=== PATIENT | female | born 1945 | race Caucasian/White ===

== ENCOUNTER → 2016-10-04 | Outpatient (CLI) | payer MEDICARE, OTHER ==
[2011-07-09 14:42] VITALS: BP 119/66
[~2016-10-04] MED LIST: CITALOPRAM HYDR20 MG PO; EXELON PAT4.6 MG/24 TD; FLUTICAS P0.05 MG/AC NS; PULMICORT180 MCG/A2 IH; SEREVENT IH
== END ==
LOC: LAB 09:24
DX: J45.998 Other asthma (principal); J30.9 Allergic rhinitis, unspecified; N39.0 Urinary tract infection, site not specified; G30.9 Alzheimer's disease, unspecified

== ENCOUNTER → 2016-10-06 | Outpatient (CLI) | payer MEDICARE, OTHER ==
[2011-07-09 14:42] VITALS: BP 119/66
== END ==
LOC: LAB 12:01
DX: J45.998 Other asthma (principal); J30.9 Allergic rhinitis, unspecified; N39.0 Urinary tract infection, site not specified; G30.9 Alzheimer's disease, unspecified